=== PATIENT | male | born 1960 | race Caucasian/White ===

== ENCOUNTER 2016-09-29 10:40 | Outpatient (CLI) | payer BC ==
--- NOTE | 2016-09-29 11:42 | Diagnostic Imaging Report ---
Indication: Osteoporosis Technique: 10 mm thick slices obtained through the L2, L3, and L4 vertebral bodies. Cortical and trabecular regions of interest were drawn. The average trabecular bone mineral density was calculated. Total dose length product 29 mGycm. CTDIvol(s) 2, 2, 3 mGy. Dose reduction achieved using automated exposure control Comparison: 2015 Findings: The calculated bone mineral density is 114 mg ca-HENRIQUEZ/ml. The T score is -2.3. This indicates the patient's bone mineral density is 2.3 standard deviations below that of normal 20-year-old males. The Z score is 0.03. This indicates the patient's bone mineral density is 0.03 standard deviations above that of age-matched controls When compared to the prior study, bone mineral density and T score have decreased slightly Impression: Patient mineral density is 10-25% below that of normal 20-year-old males. Patient is considered osteopenic by WHO criteria. Insufficiency fracture risk is moderate Interim slight decrease in this bone mineral density and T score since the previous exam, may be real but change is small enough that it also could just represent normal statistical variance The CT scanner at [facility] is accredited by the [employer] and the scans are performed using protocols designed to limit radiation exposure to as low as reasonably achievable to attain images of sufficient resolution adequate for diagnostic evaluation.
== END 2016-09-29 12:40 | disposition home or self-care (01) ==
LOC: CAT 10:40
DX: M81.0 Age-related osteoporosis without current pathological fracture (principal)
CPT/HCPCS: 77078

== ENCOUNTER → 2017-11-13 | Outpatient (CLI) | payer BC ==
--- NOTE | 2017-11-13 10:47 | Diagnostic Imaging Report ---
Indication: Osteoporosis. Technique: 10 mm thick slices obtained through the L2, L3, and L4 vertebral bodies. Cortical and trabecular regions of interest were drawn. The average trabecular bone mineral density was calculated. Total dose length product 29.74 mGycm. CTDIvol(s) 0.4, 2.8, 2.7, 3 mGy. Dose reduction achieved using automated exposure control Comparison: 09/29/2016, 09/24/2015 and 07/17/2014 Findings: The calculated bone mineral density is 116 mg ca-HENRIQUEZ/ml (previously 114). The T score is -2.22 (previously -2.3). This indicates the patient's bone mineral density is 2.2 standard deviations below that of normal 20-year-old males. The Z score is 0.17 (previously 0.03). This indicates the patient's bone mineral density is 0.17 standard deviations above that of age-matched controls IMPRESSION: Decreased bone mineral density. Patient is considered osteopenic by WHO criteria. Insufficiency fracture risk is moderate. The CT scanner at [facility] is accredited by the [employer] and the scans are performed using protocols designed to limit radiation exposure to as low as reasonably achievable to attain images of sufficient resolution adequate for diagnostic evaluation.
== END | disposition home or self-care (01) ==
LOC: CAT 08:47
DX: M81.0 Age-related osteoporosis without current pathological fracture (principal)
CPT/HCPCS: 77078